=== PATIENT | male | born 2000 | race African-American/Black ===

== ENCOUNTER 2023-02-11 18:48 | Emergency (ER) | payer BC ==
[~2023-02-11] VITALS: Ht 177.8 cm; Wt 63.6 kg
[2023-02-11 18:58] VITALS: BP 128/66; PULSE 81; RESP 18; TEMP 98.5; O2SAT 100
[2023-02-11] MEDS ORDERED: LIDOCAINE HCL 1% 20ML VIAL (Pyxis) INJ INFIL ONE (19:15)
== END 2023-02-11 22:33 | disposition home or self-care (01) ==
LOC: ER 18:48
DX: S61.215A Laceration without foreign body of left ring finger without damage to nail, initial encounter (principal); W26.0XXA Contact with knife, initial encounter; Y93.89 Activity, other specified; Y92.89 Other specified places as the place of occurrence of the external cause; Y99.8 Other external cause status
CPT/HCPCS: 12001; 99282; Z7610

== ENCOUNTER 2023-02-19 18:07 | Emergency (ER) | payer BC ==
[~2023-02-19] VITALS: Ht 177.8 cm; Wt 72.0 kg
[2023-02-19 18:43] VITALS: BP 135/87; PULSE 86; RESP 20; TEMP 97.9; O2SAT 97
== END 2023-02-19 21:50 | disposition home or self-care (01) ==
LOC: ER 21:11
DX: S61.219D Laceration without foreign body of unspecified finger without damage to nail, subsequent encounter (principal); X58.XXXD Exposure to other specified factors, subsequent encounter
CPT/HCPCS: 99281